=== PATIENT | female | born 1950 | race Caucasian/White ===

== ENCOUNTER 2019-04-24 09:22 | Inpatient (IN) | payer MEDICARE, OTHER ==
[2019-04-24] MEDS ORDERED: Ketorolac INJ* 30 MG/ML 1 ML VIAL IV PUSH ONE (09:51)
[2019-04-24] MEDS ORDERED: Ondansetron INJ* 2 MG/ML VIAL IV ONE (09:51)
[2019-04-24] MEDS ORDERED: NS 0.9% 1000 ML** 1,000 ML IV ONE (09:51)
--- NOTE | 2019-04-24 10:05 | ED ---
Abdominal Pain/Female - HPI Summary HPI Summary: The pt is a 68 yr old female presenting to [facility] c/o RUQ abd pain beginning 4 days [employer]. She rates her current pain severity a 9/10 due to the bad pain. No aggravating or alleviating factors noted. She also reports vomiting, dry heaves , nausea, chills and loss of appetite but denies any fever, diarrhea, dysuria, or hematuria. - History of Current Complaint Chief Complaint: EDAbdPain Stated Complaint: SEVERE ABDOMINAL/RIB PAIN PER PT Time Seen by Provider: 04/24/19 09:42 Hx Obtained From: Patient Onset/Duration: Sudden Onset, Still Present Timing: Days Severity Initially: Severe Severity Currently: Severe Pain Intensity: 9 Pain Scale Used: 0-10 Numeric Location: Discrete At: RUQ Aggravating Factor(s): Nothing Alleviating Factor(s): Nothing Associated Signs and Symptoms: Positive: Nausea, Vomiting, Other: - pos - chills , loss of appetite. Negative: Fever, Urinary Symptoms, Diarrhea Allergies/Adverse Reactions: Allergies Allergy/AdvReac Type Severity Reaction Status Date / Time iodine Allergy Rash And Verified 04/24/19 09:27 Itching iron Allergy Rash And Verified 04/24/19 09:27 Itching Lhyoswz-Dyj-Bev Reductase Allergy Rash And Verified 04/24/19 09:27 Inhibitor Itching Home Medications: Home Medications Ascorbic Acid TAB* [Vitamin C TAB*] 2,000 mg PO DAILY 04/24/19 [History Confirmed 04/24/19] Cholecalciferol TAB* [Vitamin D TAB*] 4,000 unit PO DAILY 04/24/19 [History Confirmed 04/24/19] Hydrochlorothiazide TAB* [Hydrodiuril TAB*] 25 mg PO DAILY 04/24/19 [History Confirmed 04/24/19] Levothyroxine Sodium 112 mcg PO DAILY 04/24/19 [History Confirmed 04/24/19] PMH/Surg Hx/FS Hx/Imm Hx Sensory History: Denies: Hx Legally Blind, Hx Deafness Opthamlomology History: Denies: Hx Legally Blind EENT History: Denies: Hx Deafness - Surgical History Surgical History: None Surgery Procedure, Year, and Place: none Infectious Disease History: No Infectious Disease History: Denies: Traveled Outside the [place] in Last 30 Days - Family History Known Family History: Negative: Renal Disease - Social History Alcohol Use: Rare Substance Use Type: Reports: None Smoking Status (MU): Heavy Every Day Tobacco Smoker Review of Systems Positive: Chills, Other - pos - loss of appetite. Negative: Fever Positive: Vomiting - dry heaves, Nausea. Negative: Diarrhea Negative: dysuria, hematuria All Other Systems Reviewed And Are Negative: Yes Physical Exam - Summary Physical Exam Summary: Constitutional: Well-developed, Well-nourished, Alert. (-) Distressed Skin: Warm, Dry HENT: Normocephalic; Atraumatic Eyes: Conjunctiva normal Neck: Musculoskeletal ROM normal neck. (-) JVD, (-) Stridor, (-) Tracheal deviation Cardio: Rhythm regular, rate normal, Heart sounds normal; Intact distal pulses; Radial pulses are 2+ and symmetric. (-) Murmur Pulmonary/Chest wall: Effort normal. (-) Respiratory distress, (-) Wheezes, (-) Rales Abd: Soft, Epigastric tenderness, RUQ tenderness, positive murphys sign, (-) Distension, (-) Guarding, (-) Rebound Musculoskeletal: (-) Edema Lymph: (-) Cervical adenopathy Neuro: Alert, Oriented x3 Psych: Mood and affect Normal Triage Information Reviewed: Yes Vital Signs On Initial Exam: Initial Vitals Temp Pulse Resp BP Pulse Ox 97.4 F 87 16 167/93 97 04/24/19 09:23 04/24/19 09:23 04/24/19 09:23 04/24/19 09:23 04/24/19 09:23 Vital Signs Reviewed: Yes Procedures - Sedation Patient Received Moderate/Deep Sedation with Procedure: No Diagnostics - Vital Signs Vital Signs Temp Pulse Resp BP Pulse Ox 04/24/19 09:23 97.4 F 87 16 167/93 97 - Laboratory Result Diagrams: 04/24/19 09:58 04/24/19 09:58 Lab Statement: Any lab studies that have been ordered have been reviewed, and results considered in the medical decision making process. - EKG 0958 Cardiac Rate: NL EKG Rhythm: Sinus Rhythm - 72 bpm Summary of EKG Findings: EKG at 0958 reveals NSR @ 72 bpm, 1 atrial premature complex, no ischemic changes. Abdominal Pain Fem Course/Dx - Course Course Of Treatment: Patient is here with right upper quadrant pain 4 days. Patient clinically had cholecystitis upon my examination. Patient blood performed which showed elevated LFTs, alkaline phosphatase, and mildly elevated T bili. Patient has a normal lipase. Patient SHOWED MULTIPLE GALLSTONES WITH A DILATED CBD OF 14 MM. THERE WERE GALLSTONES PRESENT IN CBD ON ULTRASOUND PER MY READ. SURGERY WAS CALLED AND RECOMMENDED ERCP WHICH WAS POSSIBLE AFTER TALKING TO DR. GIBSON. PATIENT IS ADMITTED TO MEDICINE. - Diagnoses Provider Diagnoses: Acute cholecystitis, Choledocholithiasis, RUQ pain - Provider Notifications Discussed Care Of Patient With: Maryjane Gates - Dr. Gates will admit pt to [facility] with GI follow up. Time Discussed With Above Provider: 11:15 Instructed by Provider To: Admit As Inpatient Discharge ED - Sign-Out/Discharge Documenting (check all that apply): Patient Departure - admit - Discharge Plan Condition: Stable Disposition: ADMITTED TO [facility] - Billing Disposition and Condition Condition: STABLE Disposition: Admitted to [facility] - Attestation Statements Document Initiated by Scribe: Yes Documenting Scribe: Garret Medellin Provider For Whom Amanda is Documenting (Include Credential): Etienne Walsh MD Scribe Attestation: IGarret, scribed for Etienne Walsh MD on 04/24/19 at 1428. Scribe Documentation Reviewed: Yes Provider Attestation: The documentation as recorded by the Garret gillespie accurately reflects the service I personally performed and the decisions made by me, Etienne Walsh MD Status of Scribe Document: Viewed
[2019-04-24 10:09] LABS: ABS Basophils 0.1 10^3/ul (0-0.2); ABS Eosinophils 0.1 10^3/ul (0-0.6); ABS Lymphocytes 1.5 10^3/ul (1.0-4.8); ABS Monocytes 0.8 10^3/ul (0-0.8); ABS Neutrophils 3.7 10^3/ul (1.5-7.7); Eosinophil % 1.8 %; Hematocrit 43 % (35-47); Hemoglobin 15.5 g/dL (12.0-16.0); Mean Corpuscular HGB Conc 36 g/dL (31-36); Mean Corpuscular Hemoglobin 33 pg (27-31); Mean Corpuscular Volume 92 fL (80-97); Mean Platelet Volume 8.9 fL (7.4-10.4); Nucleated Red Blood Cells % 0.1; Platelet Count 194 10^3/uL (150-450); Red Blood Count 4.71 10^6 /uL (3.70-4.87); Red Cell Distribution Width 13 % (10-15); White Blood Count 6.2 10^3/uL (3.5-10.8)
[2019-04-24 10:22] LABS: Albumin/Globulin Ratio 1.3 (1-3); BUN/Creatinine Ratio 23.6 (8-20); Calcium 9.4 mg/dL (8.6-10.3); EGFR African American 98.1 (>60); Globulin 3.1 g/dL (2-4); Potassium 3.3 mmol/L (3.5-5.0); Total Bilirubin 2.8 mg/dL (0.2-1.0); Total Protein 7.1 g/dL (6.4-8.9)
[2019-04-24 10:24] LABS: Troponin I 0.01 ng/mL (<0.03)
[2019-04-24] MEDS ORDERED: Piperacillin/Tazobac ADVAN(*) 3.375 GM in NS 0.9% 100 ML* 100 ML IVPB ONE (11:13)
[2019-04-24] MEDS ORDERED: Ketorolac INJ* 15 MG/ML 1 ML VIAL IV PUSH PRN (11:34)
[2019-04-24] MEDS ORDERED: PROCHLORPERAZINE INJ 5 MG/ML 2 ML VIAL IV PRN ×2 (11:41→12:29)
[2019-04-24] MEDS ORDERED: Zosyn per Pharmacy* NOTE FOLLOW UP SCH (12:00)
[2019-04-24] MEDS ORDERED: Famotidine IV* 10 MG/ML 2 ML (20 mg) IV ONE (12:24)
[2019-04-24] MEDS ORDERED: HYDROmorphone INJ1* 1 MG/ML SYRINGE IV PRN (12:29)
[2019-04-24] MEDS ORDERED: Naloxone* 0.4 MG/ML 1 ML VIAL IV PRN (12:29)
[2019-04-24] MEDS ORDERED: DiMENhydriNATE IV* 50 MG/ML VIAL IV PUSH PRN (12:29)
[2019-04-24] MEDS ORDERED: fentaNYL* 50 MCG/ML 2 ML VIAL (100 MCG VIAL) IV PRN (12:29)
[2019-04-24] MEDS ORDERED: Scopolamine 1.5 mg* PATCH TRANSDERM PRN (12:29)
[2019-04-24] MEDS ORDERED: Famotidine IV* 10 MG/ML 2 ML (20 mg) ONE (12:51)
[2019-04-24] MEDS: KCL 10 MEQ/50 ML IVPREMIX* 10 MEQ/50 ML BAG IV SCH ×2 (12:56→18:31)
[2019-04-24] MEDS: NS 0.9% 1000 ML** 1,000 ML IV SCH (12:56)
[2019-04-24] MEDS ORDERED: fentaNYL* 50 MCG/ML 2 ML VIAL (100 MCG VIAL) ONE (13:20)
[2019-04-24] MEDS ORDERED: KETAMINE HCL* 50 MG/ML 10 ML VIAL ONE (13:20)
[2019-04-24] MEDS ORDERED: Midazolam* 1 MG/ML 5 ML VIAL (5 MG) ONE (13:20)
[2019-04-24] MEDS ORDERED: Rocuronium* 10 MG/ML VIAL ONE (13:20)
--- NOTE | 2019-04-24 13:37 | ADMNOTE ---
Subjective Date of Service: 04/24/19 Interval History: HOSPITALIST HISTORY AND PHYSICAL PCP: Dr Novak Consulting GI: Dr Arias Consulting surgeon: Dr Resendez CC: Abdominal pain HPI: Mrs Alvarenga is a 68yo F with PMH of hypothyroidism, HTN, HLD, tobacco abuse , who presented to ED with c/o abdominal pain. She states 4 days ago she had a home made hamburger and developed epigastric pain radiating to her RUQ, 4/10 intensity, crampy in nature. This was followed by recurrent nausea and vomiting. She states she has not been able to eat anything and has been vomiting after each attempt. She took Tylenol with no improvement and she states the pain today was unbearable, reason why she came to ED. She denies fever, chills, diarrhea, chest pain, palpitations, dyspnea. Allergies: Iodine, Iron, and multiple statins - rash and itching Medication List: Vitamin C 2000 units PO daily Cholecalciferol 4000 units PO daily HCTZ 25mg PO daily Levothyroxine 112mcg PO daily Family History: Findings - Renal disease Social History: Findings - Smoker since age 17, up to 1 ppd, now 10 cigarrettes a day. Occasional alcohol - last had 2 beers on . Denies drug use. Works at a Pharmacy. SDM is her Marv Alvarenga [phone] Past Medical History: Findings - hypothyroidism, HTN, tobacco abuse, chronic back pain s/p steroid injection, vertebral compression fracture Review of Systems - Measurements Intake and Output: Intake and Output Last 24 Hours 04/22/19 04/23/19 04/24/19 04/25/19 06:59 06:59 06:59 06:59 Intake Total 1100 Balance 1100 Weight 175 lb Intake: IV Fluids 1100 Other: Date of Last Bowel 04/24/19 Movement Estimated Stool Amount Medium - Review of Systems General Comments: 14 point ROS was performed and all the pertinent positive and negative findings are in the HPI. Objective Active Medications: Dimenhydrinate (Dramamine Iv*) 12.5 mg IV PUSH ONCE PRN PRN Reason: NAUSEA/VOMITING Fentanyl Citrate (Fentanyl*) 25 mcg IV Q3M PRN PRN Reason: PAIN - MODERATE Hydromorphone HCl (Dilaudid Inj1s*) 0.2 mg IV Q5M PRN PRN Reason: PAIN - SEVERE Sodium Chloride (Ns 0.9% 1000 Ml) 1,000 mls @ 125 mls/hr IV PER RATE [facility] Last Admin: 04/24/19 12:56 Dose: 125 mls/hr Potassium Chloride (Potassium Chloride 10 Meq/50 Ml Ivpremix*) 10 meq in 50 mls @ 50 mls/hr IV Q1H [facility] Stop: 04/24/19 14:59 Last Admin: 04/24/19 12:56 Dose: 50 mls/hr Piperacillin Sod/Tazobactam (Sod 3.375 gm/ Sodium Chloride) 100 mls @ 25 mls/ hr IVPB Q8H [facility] Ketorolac Tromethamine (Toradol Inj*) 15 mg IV PUSH Q6H PRN PRN Reason: PAIN - MODERATE Naloxone HCl (Narcan*) 0.08 mg IV Q2M PRN PRN Reason: severe induced resp depression Pharmacy Consult (Zosyn Per Pharmacy*) 1 note FOLLOW UP .ZOSYN PER PHARMACY [facility] Pharmacy Profile Note (Scopolamine Patch Remove*) 1 note PATCH OFF Q72H ONE Stop: 04/27/19 12:32 Prochlorperazine Edisylate (Compazine Inj*) 5 mg IV Q6H PRN PRN Reason: NAUSEA/VOMITING Prochlorperazine Edisylate (Compazine Inj*) 5 mg IV ONCE PRN PRN Reason: NAUSEA/VOMITING Scopolamine (Transderm-Scop 1.5 Mg Patch*) 1 patch TRANSDERM Q72H PRN PRN Reason: Nausea/Vomiting Vital Signs - 8 hr 04/24/19 04/24/19 04/24/19 09:23 09:38 09:39 Temperature 97.4 F Pulse Rate 87 82 82 Respiratory 16 Rate Blood Pressure 167/93 159/114 (mmHg) O2 Sat by Pulse 97 96 Oximetry 04/24/19 04/24/19 04/24/19 10:00 10:15 11:00 Temperature Pulse Rate 77 73 77 Respiratory Rate Blood Pressure 136/82 (mmHg) O2 Sat by Pulse 95 95 94 Oximetry 04/24/19 04/24/19 04/24/19 11:09 11:39 12:00 Temperature Pulse Rate 78 76 71 Respiratory Rate Blood Pressure 139/94 141/70 (mmHg) O2 Sat by Pulse 96 95 95 Oximetry 04/24/19 04/24/19 04/24/19 12:09 12:35 12:43 Temperature 98.2 F 97.6 F Pulse Rate 73 76 77 Respiratory 16 18 Rate Blood Pressure 143/78 141/70 145/70 (mmHg) O2 Sat by Pulse 98 95 97 Oximetry 04/24/19 04/24/19 13:10 13:13 Temperature Pulse Rate Respiratory 18 18 Rate Blood Pressure (mmHg) O2 Sat by Pulse Oximetry Oxygen Devices in Use Now: None Appearance: Pleasant elderly lady lying in ED stretcher in NAD Eyes: No Scleral Icterus Ears/Nose/Mouth/Throat: Mucous Membranes Moist Neck: Trachea Midline Respiratory: Symmetrical Chest Expansion and Respiratory Effort, Clear to Auscultation Cardiovascular: RRR - Normal S1 and S2 Abdominal: - - Soft, mild epigastric tenderness, moderate RUQ tenderness, + Raymond, NG, BS+ Extremities: No Edema Neurological: Alert and Oriented x 3, NL Muscle Strength and Tone Result Diagrams: 04/24/19 09:58 04/24/19 09:58 Additional Lab and Data: Laboratory Tests 04/24/19 04/24/19 09:58 09:58 WBC 6.2 Hgb 15.5 Hct 43 Plt Count 194 Sodium 135 Potassium 3.3 L Chloride 98 L Carbon Dioxide 27 Anion Gap 10 BUN 17 Creatinine 0.72 Glucose 118 H Calcium 9.4 Total Bilirubin 2.80 H AST 89 H ALT 273 H Alkaline Phosphatase 218 H Troponin I 0.01 Total Protein 7.1 Albumin 4.0 Globulin 3.1 Lipase 37 Diagnostic Imaging: US GALL BLADDER 1. CHOLELITHIASIS WITH CHOLEDOCHOLITHIASIS AND BILIARY DILATATION. 2. THERE IS GALLBLADDER WALL THICKENING AND A POSITIVE SONOGRAPHIC RAYMOND'S SIGN CONCERNING FOR ACUTE MUCOSITIS IN THE CORRECT CLINICAL SETTING. 3. FATTY INFILTRATION OF LIVER. 4. CYSTIC LESIONS OF THE LIVER OF INDETERMINATE CLINICAL SIGNIFICANCE. RECOMMEND CONSIDERATION OF CONTRAST-ENHANCED CT OR CONTRAST-ENHANCED MRI IN THE NONACUTE SETTING. Assess/Plan/Problems-Billing Assessment: Mrs Alvarenga is a 68yo F with PMH of hypothyroidism, HTN, tobacco abuse, who presented to ED with c/o abdominal pain, N/V, found to have acute cholecystitis and choledocolithiasis. - Patient Problems (1) Choledocholithiasis with acute cholecystitis Comment: - US reveals cholelithiasis with choledocholithiasis and biliary duct dilation; also GB wall thickening. - Will continue Zosyn and symptomatic treatment. - GI consult requested for ERCP. - General surgery also consulted. (2) Hypertension Comment: - Hold HCTZ and monitor BP. (3) Hypothyroidism Comment: - Change Levothyroxine to IV. (4) DVT prophylaxis Comment: - SCDs for now as she'll require ERCP. (5) Full code status Status and Disposition: OBV. Approximately 50 minutes were spent with patient and interview, medical records review, physical examination to complete this admission, more than half of this time was spent face to face with the patient and coordination of care.
[2019-04-24] MEDS ORDERED: EPHEDrine (Pressors)* 50 MG/ML VIAL ONE (14:58)
[2019-04-24] MEDS ORDERED: Dexamethasone IV* 4 MG/ML 1 ML (4 MG) ONE (14:58)
[2019-04-24] MEDS ORDERED: Phenylephrine 40 MCG/ML SYRINGE ONE (14:58)
[2019-04-24] MEDS ORDERED: Propofol* 10 MG/ML 20 ML BTL ONE (14:58)
[2019-04-24] MEDS ORDERED: PROCHLORPERAZINE INJ 5 MG/ML 2 ML VIAL ONE (14:58)
[2019-04-24] MEDS ORDERED: Sugammadex * 200 MG/2 ML VIAL IV PUSH ONE (14:58)
[2019-04-24] MEDS ORDERED: Lidocaine 2% PF * 5 ML VIAL ONE (14:58)
[2019-04-24] MEDS ORDERED: ZOSYN 3.375 GM Q8H per EXTENDED INFUSION IVPB SCH ×2 (15:30)
--- NOTE | 2019-04-24 15:56 | CONS ---
GASTROENTEROLOGY CONSULT: DATE: 04/24/19 CONSULTING PHYSICIANS: Dr. Etienne Walsh, Dr. Ronnie Goff. REASON FOR CONSULT: Abdominal pain radiating to the right costal margin and elevated liver function tests. HISTORY: This 68-year-old woman treated for hypothyroidism and hypertension, developed abdominal pain 4 days ago. It has increased intermittently and she has been vomiting and unable to keep anything down. There have been chills and sweats. The pain is in the mid epigastrium and has radiated to the right side and little bit to the back. She says she has never had anything like this before. In the emergency room, she was afebrile, though she reported chills at home. Her pain has been relieved by a pain shot. PAST MEDICAL HISTORY: 1. Cyst removed right ovary in 1979 - she is not aware of any associated procedures. 2. Surgical thyroidectomy - on replacement. 3. Hypertension - without sequelae. MEDICATIONS: At home: Vitamin D Vitamin C, Levothyroxine 112 mcg, Hydrochlorothiazide 25. She is on no anticoagulants. SOCIAL HISTORY: She is from [place], [place] originally and met her in the [employer] and moved up here where he was from. She smokes REVIEW OF SYSTEMS: No history of TIA, CVA, seizures, syncope, palpitations, ME , hepatitis, jaundice, hernia surgery. She had upper endoscopy 15 to 20 years ago when there was complaint of some acid indigestion, but negative findings to her knowledge and she does not take anything now. She has had a couple of colonoscopies and says the findings are routine. EXAM: She is a moderately overweight, middle-aged woman, in no overt distress smelling strongly of tobacco. Blood pressure 140/70, pulse 76 and regular. She is afebrile. HEENT exam shows muddy sclerae. Mucous membranes are normal. She has no adenopathy or bruits. Her lungs are clear. Heart sounds are regular. Breast and Pelvic Exams: Deferred. The abdomen is obese, symmetric, soft, and there is some right upper quadrant tenderness, though no rigidity or guarding. Rectal: Deferred. Extremities show no edema. Neurologic shows normal mentation and movement of all 4 extremities and strength. LABS: Hemoglobin 15.5, hematocrit 43, MCV 92, white count 6.2. Sodium 135, potassium 3.3, BUN 17, creatinine 0.72. Bilirubin 2.8 compared to 0.5 in October 2011. ALT 273 compared to 17 in November 2011. TSH last in the system 0.38 in December 2012. IMPRESSION: This 68-year-old woman has 4 days of abdominal pain consistent with a biliary process and ultrasound confirms that. She has a dilated duct on ultrasound and multiple common duct stones. ERCP is appropriate and as she has had some chills at home and has now been given an antibiotic, the situation was discussed with her and her . A diagram was used to elucidate the relevant variables and all questions were answered. They are aware that cholecystectomy will follow. [id number] #: [id number] [facility]
[2019-04-24] MEDS: KCL premix 10MEQ/50 ML x 2 BAGS IV SCH ×2 (18:33→20:49)
--- NOTE | 2019-04-24 21:23 | PRO ---
DATE: 04/24/19 REFERRING PHYSICIAN : Dr. Ronnie Goff, Dr. Alec Resendez. PROCEDURE: ERCP with sphincterotomy and balloon delivery of 12 mm common bile duct stone. INDICATION: This 68-year-old woman came to the emergency room with abdominal pain and was found to have elevated LFTs. Ultrasound showed a dilated duct and stones in the duct. She was given antibiotics in the emergency room. Consultation was done and ERCP explained to the patient and with the assistance of a diagram. All questions were answered. She appeared stable. She had been seen by the hospitalist, Dr. Mancia and the emergency room physician. She appeared stable from a cardiopulmonary point of view. ENDOSCOPIST: Dr. Arias. ANESTHESIA: Dr. Mcmahon. FINDINGS: She was brought to the OR. She had been given antibiotics in the emergency room. She was positioned in the semi-prone position slightly tilted up after intubation. ERCP: Esophagus - 20% views were normal. Stomach - 50% views were normal. The antrum had no overt deformity. The pylorus appeared normal. Duodenum-normal mucosa in general. There was a moderately enlarged diverticulum and the papillae was at 4 o'clock orientation. Cannulation-achieved with the first pass of the sphincterotome with free wire technique up into the liver. The cystic duct was not entered. The wire was locked and then dye injection done. Stones were seen. There was 1 dominant stone. The sphincterotome then made a cut at 11 o'clock orientation for about 12 mm. This was retirement down into the cavity of the diverticulum. Exchange was made for a balloon, inflated to 15 and stripping down the duct it encountered the major stone and this was teased through the sphincterotomy snugly but easily with the first pass. It was an oval, oblong, brownish stone. Some other debris and small stones were delivered with subsequent passes, but they were less than 1 quarter of the size of the original stone. Dye drained easily. Procedure was terminated. No pancreatic cannulation was done. IMPRESSION: 1. Generally normal esophagus and stomach. 2. Duodenal diverticulum. 3. Dilated common bile duct. 4. After Sphincterotomy Common bile duct stone-delivered and dye drained readily at the end of the procedure. [id number] #: [id number] [facility]
[2019-04-25] MEDS: NS 0.9% 1000 ML** 1,000 ML IV SCH ×3 (00:48→17:23)
[2019-04-25] MEDS: ZOSYN 3.375 GM Q8H per EXTENDED INFUSION IVPB SCH ×6 (00:49→17:23)
[2019-04-25 05:23] LABS: ABS Lymphocytes 1.1 10^3/ul (1.0-4.8); ABS Monocytes 0.3 10^3/ul (0-0.8); ABS Neutrophils 3.2 10^3/ul (1.5-7.7); Eosinophil % 0.4 %; Hematocrit 38 % (35-47); Hemoglobin 13.3 g/dL (12.0-16.0); Lymphocyte % 23.2 %; Mean Corpuscular HGB Conc 35 g/dL (31-36); Mean Corpuscular Hemoglobin 33 pg (27-31); Mean Corpuscular Volume 93 fL (80-97); Mean Platelet Volume 8.6 fL (7.4-10.4); Nucleated Red Blood Cells % 0.1; Platelet Count 175 10^3/uL (150-450); Red Blood Count 4.07 10^6 /uL (3.70-4.87); Red Cell Distribution Width 12 % (10-15); White Blood Count 4.7 10^3/uL (3.5-10.8)
[2019-04-25] MEDS ORDERED: Levothyroxine INJ* 100 MCG/5 ML VIAL IV SCH (06:00)
[2019-04-25 06:01] LABS: Albumin 3.2 g/dL (3.2-5.2); Albumin/Globulin Ratio 1.3 (1-3); BUN/Creatinine Ratio 18.9 (8-20); Calcium 8.3 mg/dL (8.6-10.3); EGFR African American 139.7 (>60); EGFR Non-African American 115.4 (>60); Globulin 2.5 g/dL (2-4); Potassium 3.9 mmol/L (3.5-5.0); Total Bilirubin 1.1 mg/dL (0.2-1.0); Total Protein 5.7 g/dL (6.4-8.9)
--- NOTE | 2019-04-25 11:30 | PN ---
Progress Note - Progress Note Date of Service: 04/25/19 Note: Brief Surgery Note: (full consult dictated) 68 yo female w/ onset of sx (abd pain, N/V, fever/chills) on 04/21, who came to the ED 04/24 and was found by US to have cholelithiasis, poss cholecystitis, and choledocholithiasis, with elevated LFTs, including t bili of 2.8. She was taken by Dr. Arias for ERCP w/ sphincterotomy 04/24 for successful removal of a large CBD stone as well as smaller stones and debris. Today she feels "great" with only some residual back pain. She has tolerated a clear liquid tray this a.m. and has an appetite. Her LFTs are improving. By exam there is still moderate RUQ tenderness to palp w/ equivocal Raymond's sign. The remainder of the abdomen is soft and nontender. She was also seen earlier by both Drs. Resendez and Shivani. There is potential for lap cholecystectomy tomorrow, though at this point, to be determined. If not , and she remained stable medically, she could potentially be discharged to home on conservative diet with tentative plans for OR early next week.
--- NOTE | 2019-04-25 11:48 | CONS ---
CC: Dr. Ronnie Goff [facility] SURGICAL CONSULTATION NOTE: DATE OF CONSULT: 04/25/19 ATTENDING SURGEON: Dr. Alec Resendez. CHIEF COMPLAINT: Cholelithiasis with choledocholithiasis. HISTORY OF PRESENT ILLNESS: This is a 68-year-old female who reports onset of symptoms around which included initial abdominal discomfort accompanied by vomiting and then dry heaves. Pain inc reased and became more centered in the mid epigastrium with some radiation to the right and to the ba ck. Symptoms persisted through Thursday and Thursday and continued to worsen such that by Thursday jammie pack, she decided to come into the ED. She also relates associated fever and chills. She has not had a ny prior similar symptoms. She reports some constipation. No diarrhea. She reports one episode of dark appearing urine. She was admitted to the hospitalist service and has already undergone ERCP and sphincterotomy with Dr. Arias (see separate consultation and procedure notes). Her ultrasound on admission did show gallstones, mild gallbladder wall thickening, and common bile duct dilatation up t o 1.4 cm as well as a positive sonographic Raymond sign. This morning, she states that she "feels gre at." She does admit to some mild discomfort in the back, but otherwise denies significant abdominal pain, nausea, or vomiting. She had a clear liquid tray this morning, which she tolerated well. She h as since had 2 small loose bowel movements. There is a family history of gallbladder disease in her mother. PAST MEDICAL HISTORY: She was treated for hypertension and hypothyroidism (status post subtotal thyr oidectomy for goiter with subsequent radioactive iodine ablation). She is a long-term and active smo ker. PAST SURGICAL HISTORY: Previous surgeries include subtotal thyroidectomy and lumbar back surgery x2 for disk disease. She is also status post right ovarian cystectomy via low transverse incision (no p roblems related to anesthesia or surgery). CURRENT HOME MEDICATIONS: Include: 1. Levothyroxine. 2. Hydrochlorothiazide. 3. Vitamin C. 4. Vitamin D. At present, she is being treated with IV Zosyn. DRUG ALLERGIES: Include STATINS, ORAL IODINE, and ORAL IRON. FAMILY HISTORY: Gallbladder disease in her mother as noted above. The patient has a sister who has had difficulty with general anesthesia, otherwise no history of bleeding disorders or thromboembolic disease. SOCIAL HISTORY: The patient is . They also have a daughter, son-in-law, and granddaughter mara de paz with them. She is a smoker of one-half pack per day for the past 50 years. She is encouraged t o quit. She drinks between 1 and 2 drinks per day, but not daily. No reported use of recreational d rugs. REVIEW OF SYSTEMS: General: No recent constitutional symptoms or acute illnesses other than describ ed in the [facility]. Cardiovascular: No chest pain, palpitations, history of heart murmurs. She was rosaura kash for hypertension. Respiratory: Smoking history as noted. No history of shortness of breath or COPD by her history. GI: As above per HPI. No additions. : No additions to above. Endocrine: No additions to above. PHYSICAL EXAM: Height 5 feet 3 inches, weight 175 pounds, temperature 97.7, blood pressure 142/68, p ulse 71, respirations 16, room air saturation 96%. General: Well-nourished mildly obese female in no acute distress. She appears comfortable, lying in the bed. Skin: Warm and dry. No suspicious maria fernanda hes or lesions. HEENT: Pupils equal and round, reactive. EOMs intact. No conjunctival pallor or sc leral icterus. Oropharynx: Mucous membranes moist. Partial upper denture. Remaining teeth in fair to good repair. No intraoral lesions. Neck: Well-healed thyroidectomy scar. No palpable masses o r lymphadenopathy. Heart: Regular rate and rhythm. No murmur noted. Lungs: Clear to auscultation with occasional wheeze on the right. No rales. Abdomen: Mildly obese. Well-healed surgical scar in the suprapubic region. Bowel sounds are present and normoactive, soft with mild-to- moderate tend erness in the right upper quadrant with an equivocal Raymond sign. The remainder of the abdomen is so ft, nontender, without palpable masses or organomegaly. Genitalia and Rectal: Not done. Back: No spinous process or CVA tenderness. Extremities: No edema. Neurological: Grossly intact. DIAGNOSTIC STUDIES/LAB DATA: Of note, white blood cell count 4.7, hemoglobin 13.3. Electrolytes, BUN and creatinine are normal. Her total bilirubin is 1.1, down from 2.8 on admission. AST 39, down fr om 89. ALT 184, down from 273. Alkaline phosphatase 161, down from 218. Her lipase on admission wa s normal at 37. Imaging studies as noted above. IMPRESSION: Cholelithiasis likely with cholecystitis as well as choledocholithiasis, now status post ERCP with sphincterotomy and retrieval of common bile duct stones. PLAN: Case was discussed with Dr. Resendez and we would be looking for a time to do laparoscopic chol ecystectomy that could be as soon as tomorrow, 04/26/19. Otherwise if not possible, the patient could be scheduled for the near future as an outpatient same-day surgery. The patient is understanding of the plan and recommendations. EMERALD IBARRA [id number] #: [id number]
--- NOTE | 2019-04-25 13:09 | PN ---
Subjective Date of Service: 04/25/19 Interval History: HOSPITALIST PROGRESS NOTE Patient seen and examined at bedside. Care reviewed and d/w Lorenza Bagley RN. She feels improved today. Abdominal pain is pretty much resolved, but appetite has not returned yet. Denies N/V/D. Family History: Unchanged from Admission Social History: Unchanged from Admission Past Medical History: Unchanged from Admission Objective Active Medications: Sodium Chloride (Ns 0.9% 1000 Ml) 1,000 mls @ 125 mls/hr IV PER RATE [facility] Last Admin: 04/25/19 09:14 Dose: 125 mls/hr Piperacillin Sod/Tazobactam (Sod 3.375 gm/ Sodium Chloride) 100 mls @ 25 mls/ hr IVPB Q8H [facility] Last Admin: 04/25/19 09:11 Dose: 25 mls/hr Ketorolac Tromethamine (Toradol Inj*) 15 mg IV PUSH Q6H PRN PRN Reason: PAIN - MODERATE Levothyroxine Sodium (Synthroid Inj*) 56 mcg IV 0600 [facility] Last Admin: 04/25/19 05:40 Dose: 56 mcg Pharmacy Consult (Zosyn Per Pharmacy*) 1 note FOLLOW UP .ZOSYN PER PHARMACY [facility] Prochlorperazine Edisylate (Compazine Inj*) 5 mg IV Q6H PRN PRN Reason: NAUSEA/VOMITING Vital Signs - 8 hr 04/25/19 04/25/19 04/25/19 07:28 08:00 11:16 Temperature 97.7 F 97.5 F Pulse Rate 71 58 Respiratory 16 20 16 Rate Blood Pressure 142/68 124/64 (mmHg) O2 Sat by Pulse 96 97 Oximetry Oxygen Devices in Use Now: None Appearance: Pleasant elderly lady sitting up in bed in NAD Eyes: No Scleral Icterus Ears/Nose/Mouth/Throat: Mucous Membranes Moist Neck: Trachea Midline Respiratory: Symmetrical Chest Expansion and Respiratory Effort, Clear to Auscultation Cardiovascular: RRR - Normal S1 and S2 Abdominal: NL Sounds; No Tenderness; No Distention Neurological: Alert and Oriented x 3, NL Muscle Strength and Tone Result Diagrams: 04/25/19 05:04 04/25/19 05:04 Diagnostic Imaging: US GALL BLADDER 1. CHOLELITHIASIS WITH CHOLEDOCHOLITHIASIS AND BILIARY DILATATION. 2. THERE IS GALLBLADDER WALL THICKENING AND A POSITIVE SONOGRAPHIC CAMERON'S SIGN CONCERNING FOR ACUTE MUCOSITIS IN THE CORRECT CLINICAL SETTING. 3. FATTY INFILTRATION OF LIVER. 4. CYSTIC LESIONS OF THE LIVER OF INDETERMINATE CLINICAL SIGNIFICANCE. RECOMMEND CONSIDERATION OF CONTRAST-ENHANCED CT OR CONTRAST-ENHANCED MRI IN THE NONACUTE SETTING. Assess/Plan/Problems-Billing Assessment: Mrs Alvarenga is a 68yo F with PMH of hypothyroidism, HTN, tobacco abuse, who presented to ED with c/o abdominal pain, N/V, found to have acute cholecystitis and choledocolithiasis. - Patient Problems (1) Choledocholithiasis with acute cholecystitis Comment: - US revealed cholelithiasis with choledocholithiasis and biliary duct dilation; also GB wall thickening. - S/p successfull ERCP. - Continue Zosyn and symptomatic treatment. - General surgery input appreciated - tentative plan for lap fernando tomorrow. - Patient has no complaints of CP or dyspnea on exertion. EKG shows no acute ischemic changes. RCRI is 0, predicting a 0.5% risk of MACE. Patient is optimized for proposed procedure. (2) Hypertension Comment: - HCTZ on hold - continue to monitor BP. (3) Hypothyroidism Comment: - Resume PO Levothyroxine. (4) Tobacco abuse Comment: - Patient received education re: tobacco cessation. Declines nicotine supplementation at this time. (5) DVT prophylaxis Comment: - SCDs. (6) Full code status Status and Disposition: Change to inpatient.
[2019-04-25] MEDS ORDERED: Buffered Lidocaine 1% SYRIN* 1 ML/SYRINGE INTRADERM ONE (13:20)
--- NOTE | 2019-04-25 15:44 | PN ---
Progress Note - Progress Note Date of Service: 04/25/19 Note: GI fu doing well, no pain VSS nad, alert +bs, soft LFTs improving Cholelithiasis, OR tomorrow Galen MD Mitul
[2019-04-25] MEDS ORDERED: Acetaminophen TAB* 325 MG PO PRN (22:58)
[2019-04-26] MEDS: ZOSYN 3.375 GM Q8H per EXTENDED INFUSION IVPB SCH ×6 (01:17→17:12)
[2019-04-26] MEDS: NS 0.9% 1000 ML** 1,000 ML IV SCH ×2 (01:50→11:08)
[2019-04-26] MEDS: Levothyroxine TAB* 112 MCG TAB PO SCH (05:59)
[2019-04-26] MEDS ORDERED: Lactated Ringers 1000 ML Bag* 1,000 ML IV SCH (06:00)
[2019-04-26] MEDS ORDERED: Ondansetron INJ* 2 MG/ML VIAL IV ONE (06:00)
[2019-04-26] MEDS ORDERED: Dexamethasone IV* 4 MG/ML 1 ML (4 MG) IV SLOW PU ONE (06:00)
[2019-04-26 06:06] LABS: Albumin 3.1 g/dL (3.2-5.2); Calcium 7.7 mg/dL (8.6-10.3); Potassium 3.5 mmol/L (3.5-5.0)
[2019-04-26 06:12] LABS: Albumin/Globulin Ratio 1.4 (1-3); BUN/Creatinine Ratio 11.1 (8-20); EGFR African American 114.4 (>60); EGFR Non-African American 94.5 (>60); Globulin 2.2 g/dL (2-4); Total Protein 5.3 g/dL (6.4-8.9)
[2019-04-26] MEDS ORDERED: Famotidine IV* 10 MG/ML 2 ML (20 mg) IV ONE (08:00)
--- NOTE | 2019-04-26 10:00 | PN ---
Progress Note - Progress Note Date of Service: 04/26/19 Note: Patient feels tired but no other complaints. Denies abdominal pain, nausea, vomiting. Denies chest pain or dyspnea. Has been walking in the hallways. Temp Pulse Resp BP Pulse Ox 97.6 F 59 16 165/68 96 04/26/19 08:46 04/26/19 08:46 04/26/19 08:46 04/26/19 08:46 04/26/19 08:46 Intake & Output 04/25/19 04/26/19 04/26/19 22:59 06:59 14:59 Intake Total 3390 1095 Output Total 1800 1750 500 Balance 1590 -655 -500 General: No acute distress. Pleasant. Abdomen: soft, nontender, nondistended. Extremities: Warm. No pedal edema Neuro: Alert, oriented x3 Laboratory Results - last 24 hr 04/26/19 05:21 Sodium 138 Potassium 3.5 Chloride 110 Carbon Dioxide 22 Anion Gap 6 BUN 7 Creatinine 0.63 Est GFR ( Amer) 114.4 Est GFR (Non-Af Amer) 94.5 BUN/Creatinine Ratio 11.1 Glucose 83 Calcium 7.7 L Total Bilirubin 1.00 AST 27 ALT 131 H Alkaline Phosphatase 126 H Total Protein 5.3 L Albumin 3.1 L Globulin 2.2 Albumin/Globulin Ratio 1.4 A&P 68F with choledocholithiasis s/p ERCP and sphincterotomy. -OR today for laparoscopic possible open cholecystectomy this afternoon. Discussed risks of surgery including but not limited to bleeding, infection, bile duct injury, bowel injury. -Continue Zosyn -NPO. IVF -Anticipate ready for discharge to home later today or tomorrow.
[2019-04-26] MEDS ORDERED: Naloxone* 0.4 MG/ML 1 ML VIAL IV PRN (17:47)
[2019-04-26] MEDS ORDERED: HYDROmorphone INJ1* 1 MG/ML SYRINGE IV PRN (17:47)
[2019-04-26] MEDS ORDERED: fentaNYL* 50 MCG/ML 2 ML VIAL (100 MCG VIAL) IV PRN (17:47)
[2019-04-26] MEDS ORDERED: oxyCODONE TAB* 5 MG TAB PO PRN (17:47)
[2019-04-26] MEDS ORDERED: DiMENhydriNATE IV* 50 MG/ML VIAL IV PUSH PRN (17:47)
[2019-04-26] MEDS ORDERED: Dexamethasone IV* 4 MG/ML 1 ML (4 MG) ONE (17:55)
[2019-04-26] MEDS ORDERED: Ondansetron INJ* 2 MG/ML VIAL ONE (17:55)
[2019-04-26] MEDS ORDERED: Labetalol IV* 5 MG/ML 20 ML VIAL ONE (17:56)
[2019-04-26] MEDS ORDERED: Midazolam* 1 MG/ML 5 ML VIAL (5 MG) ONE (18:10)
[2019-04-26] MEDS ORDERED: Rocuronium* 10 MG/ML VIAL ONE ×2 (18:10→18:11)
[2019-04-26] MEDS ORDERED: fentaNYL* 50 MCG/ML 2 ML VIAL (100 MCG VIAL) ONE (18:10)
[2019-04-26] MEDS ORDERED: KETAMINE HCL* 50 MG/ML 10 ML VIAL ONE (18:10)
--- NOTE | 2019-04-26 19:28 | PN ---
Subjective Date of Service: 04/26/19 Interval History: patient seen today doing well, pain improved. for lap fernando today as per surgery. No acute events overnight Social History: Unchanged from Admission Past Medical History: Unchanged from Admission Objective Active Medications: Acetaminophen (Tylenol Tab*) 650 mg PO Q4H PRN PRN Reason: FEVER/HEADACHE Last Admin: 04/25/19 23:27 Dose: 650 mg Dimenhydrinate (Dramamine Iv*) 12.5 mg IV PUSH ONCE PRN PRN Reason: NAUSEA/VOMITING Fentanyl Citrate (Fentanyl*) 25 mcg IV Q3M PRN PRN Reason: PAIN - MODERATE Hydromorphone HCl (Dilaudid Inj1s*) 0.2 mg IV Q5M PRN PRN Reason: PAIN - SEVERE Sodium Chloride (Ns 0.9% 1000 Ml) 1,000 mls @ 125 mls/hr IV PER RATE [facility] Last Admin: 04/26/19 11:08 Dose: 125 mls/hr Piperacillin Sod/Tazobactam (Sod 3.375 gm/ Sodium Chloride) 100 mls @ 25 mls/ hr IVPB Q8H [facility] Last Admin: 04/26/19 17:12 Dose: 25 mls/hr Lactated Ringer's (Lactated Ringers 1000 Ml Bag*) 1,000 mls @ 125 mls/hr IV PER RATE [facility] Ketorolac Tromethamine (Toradol Inj*) 15 mg IV PUSH Q6H PRN PRN Reason: PAIN - MODERATE Levothyroxine Sodium (Synthroid Tab*) 112 mcg PO DAILY@0600 [facility] Last Admin: 04/26/19 05:59 Dose: 112 mcg Naloxone HCl (Narcan*) 0.08 mg IV Q2M PRN PRN Reason: severe induced resp depression Oxycodone HCl (Roxycodone Tab*) 5 mg PO ONCE PRN PRN Reason: PAIN - MODERATE Pharmacy Consult (Zosyn Per Pharmacy*) 1 note FOLLOW UP .ZOSYN PER PHARMACY [facility] Prochlorperazine Edisylate (Compazine Inj*) 5 mg IV Q6H PRN PRN Reason: NAUSEA/VOMITING Vital Signs - 8 hr 04/26/19 04/26/19 11:28 15:27 Temperature 98.5 F 97.9 F Pulse Rate 65 68 Respiratory 18 16 Rate Blood Pressure 158/80 162/72 (mmHg) O2 Sat by Pulse 98 98 Oximetry Oxygen Devices in Use Now: None Appearance: awake. alert no distress Eyes: No Scleral Icterus Ears/Nose/Mouth/Throat: NL Teeth, Lips, Gums, Mucous Membranes Moist Neck: NL Appearance and Movements; NL JVP, Trachea Midline Respiratory: Symmetrical Chest Expansion and Respiratory Effort, Clear to Auscultation Cardiovascular: NL Sounds; No Murmurs; No JVD, RRR Abdominal: NL Sounds; No Tenderness; No Distention Extremities: No Edema Skin: No Rash or Ulcers Neurological: Alert and Oriented x 3, NL Sensation Result Diagrams: 04/25/19 05:04 04/26/19 05:21 Additional Lab and Data: Laboratory Tests 04/24/19 04/24/19 09:58 09:58 WBC 6.2 Hgb 15.5 Hct 43 Plt Count 194 Sodium 135 Potassium 3.3 L Chloride 98 L Carbon Dioxide 27 Anion Gap 10 BUN 17 Creatinine 0.72 Glucose 118 H Calcium 9.4 Total Bilirubin 2.80 H AST 89 H ALT 273 H Alkaline Phosphatase 218 H Troponin I 0.01 Total Protein 7.1 Albumin 4.0 Globulin 3.1 Lipase 37 Diagnostic Imaging: US GALL BLADDER 1. CHOLELITHIASIS WITH CHOLEDOCHOLITHIASIS AND BILIARY DILATATION. 2. THERE IS GALLBLADDER WALL THICKENING AND A POSITIVE SONOGRAPHIC CAMERON'S SIGN CONCERNING FOR ACUTE MUCOSITIS IN THE CORRECT CLINICAL SETTING. 3. FATTY INFILTRATION OF LIVER. 4. CYSTIC LESIONS OF THE LIVER OF INDETERMINATE CLINICAL SIGNIFICANCE. RECOMMEND CONSIDERATION OF CONTRAST-ENHANCED CT OR CONTRAST-ENHANCED MRI IN THE NONACUTE SETTING. Assess/Plan/Problems-Billing Assessment: Mrs Alvarenga is a 68yo F with PMH of hypothyroidism, HTN, tobacco abuse, who presented to ED with c/o abdominal pain, N/V, found to have acute cholecystitis and choledocolithiasis. - Patient Problems (1) Choledocholithiasis with acute cholecystitis Current Visit: Yes Status: Acute Code(s): K80.42 - CALCULUS OF BILE DUCT W ACUTE CHOLECYSTITIS W/O OBSTRUCTION SNOMED Code(s): 32301599 Comment: - US revealed cholelithiasis with choledocholithiasis and biliary duct dilation; also GB wall thickening. - S/p successfull ERCP. - Continue Zosyn. - for lap fernando today (2) Hypertension Current Visit: Yes Status: Acute Code(s): I10 - ESSENTIAL (PRIMARY) HYPERTENSION SNOMED Code(s): 96209195 Comment: - HCTZ on hold - continue to monitor BP. (3) Hypothyroidism Current Visit: Yes Status: Acute Code(s): E03.9 - HYPOTHYROIDISM, UNSPECIFIED SNOMED Code(s): 88832718 Comment: - Resume PO Levothyroxine. (4) DVT prophylaxis Current Visit: Yes Status: Acute Code(s): Z29.9 - ENCOUNTER FOR PROPHYLACTIC MEASURES, UNSPECIFIED SNOMED Code(s): 748099314 Comment: - SCDs. Status and Disposition: possible discharge in am
[2019-04-26] MEDS ORDERED: Bupivacaine 0.25% SDV* 30 ML ONE (19:57)
[2019-04-26] MEDS ORDERED: HYDROmorphone INJ1* 1 MG/ML SYRINGE ONE (20:19)
[2019-04-26] MEDS ORDERED: Propofol* 10 MG/ML 20 ML BTL ONE (20:23)
[2019-04-26] MEDS ORDERED: Ketorolac INJ* 30 MG/ML 1 ML VIAL ONE (20:23)
[2019-04-26] MEDS ORDERED: Acetaminophen IV 1GM/100ML * 100 ML ONE (20:23)
[2019-04-26] MEDS ORDERED: Lidocaine 2% PF * 5 ML VIAL ONE (20:23)
[2019-04-26] MEDS ORDERED: Phenylephrine 10 MG/ML VIAL* 1 ML VIAL ONE (20:23)
--- NOTE | 2019-04-26 22:07 | BRIEFOPN ---
Brief Operative/Procedure Note - Operation Details Pre-Op Diagnosis: Choledocholithiasis Post-Op Diagnosis: Same Procedures: Laparoscopic cholecystectomy Surgeon(s)/Proceduralists: Marta Lawton MD. Corporate Account Executive: Alec Resendez MD Anesthesia: General Estimated Blood Loss: Minimal Findings: Mild inflammation of gallbladder wall Specimen(s)/Culture(s) Description: Gallbladder Complications: None
[2019-04-26] MEDS ORDERED: oxyCODONE TAB* 5 MG TAB ONE (22:12)
--- NOTE | 2019-04-27 01:00 | OP ---
CC: Dr. Ronnie Goff * DATE OF OPERATION: 04/26/19 - ROOM #339 DATE OF : 54. SURGEON: Marta Lawton M.D. DAIRY STORE MANAGER: Alec Resendez M.D. PRIMARY CARE PHYSICIAN: Dr. Ronnie Goff. ANESTHESIA: General. PRE-OP DIAGNOSIS: Choledocholithiasis. POST-OP DIAGNOSIS: Choledocholithiasis. OPERATIVE PROCEDURE: Laparoscopic cholecystectomy. ESTIMATED BLOOD LOSS: 30 mL. INDICATIONS: Екатерина Alvarenga is a 68-year-old female with a history of hypertension and hypothyroidism, who presented to the ED with abdominal pain and nausea and vomiting. She was found to have choledocholithiasis. She underwent ERCP on 04/24/19 where a sphincterotomy was performed with balloon delivery of a common bile duct stone. Cholecystectomy was then discussed with the patient. I discussed risks including but not limited to bleeding, infection , common bile duct injury or bowel injury. She agreed to proceed with surgery. FINDINGS: Mildly inflamed gallbladder wall. DESCRIPTION OF PROCEDURE: The patient was brought to the OR and placed in the supine position on the OR table. SCDs were placed. A warming blanket was also placed on the patient. Zosyn was started which she had been receiving pre- operatively. General anesthesia was administered. The abdomen was prepped and draped in the usual sterile fashion. A time-out confirming the patient's name, date of , and procedure was called. A curvilinear supraumbilical incision was made with a 15 blade scalpel. The incision was taken down to the fascia with blunt dissection. The fascia was elevated and incised transversely. The peritoneum was elevated using a Jennifer clamp. Metzenbaum scissors was used to open the peritoneum. A 12-mm trocar was placed into the abdomen. Pneumoperitoneum was achieved to 15 mmHg. The camera was inserted into the abdomen. A 5-mm trocar was placed in the epigastrium under direct visualization. Another 5-mm trocar was placed laterally in the right upper quadrant, and a third 5-mm trocar was placed medial in the right upper quadrant, both under direct visualization. The gallbladder was elevated cephalad. The peritoneum was taken off of the gallbladder wall using electrocautery and blunt dissection. The peritoneum was thickened. The peritoneum over the cystic duct and artery was taken down using electrocautery and blunt dissection. The critical view was obtained after skeletonizing the cystic duct and artery. A medium clip process camera operator was used to clip the cystic artery, and divide the artery between the clips. The cystic duct was slightly larger than the medium clips, so a large clip process camera operator was used. The epigastric 5-mm trocar was upsized to a 12-mm trocar. The cystic duct was clipped with large clips and divided with scissors between the clips. The gallbladder was then taken off the liver bed using electrocautery. The gallbladder was placed in the specimen bag and removed from the abdomen. It was then passed off the the field to send to Pathology. The right upper quadrant was suctioned. There was small amount of bleeding from the liver. There was no active bleeding at the end of the case. The clips were in good position on the artery and the duct. The 5-mm trocars were removed under direct visualization. The 12-mm epigastric trocar was removed under direct visualization. The umbilical trocar was removed. The fascia was closed with a [id number] 0 Vicryl stitch. The skin was closed with a running 4-0 Monocryl suture. The remaining trocar sites were closed with interrupted 4-0 Monocryl sutures. 0.25% Marcaine was then infiltrated into each of the trocar sites. Steri-Strips were placed over the incisions. The needle and sponge counts were correct. The patient was extubated and brought to Recovery in stable condition. [id number]/[facility] #: [id number] NOEMI
[2019-04-27] MEDS: ZOSYN 3.375 GM Q8H per EXTENDED INFUSION IVPB SCH ×4 (02:02→08:06)
[2019-04-27] MEDS: oxyCODONE TAB* 5 MG TAB PO PRN ×2 (02:02→07:59)
[2019-04-27] MEDS: Levothyroxine TAB* 112 MCG TAB PO SCH (06:02)
--- NOTE | 2019-04-27 08:12 | PN ---
Progress Note - Progress Note Date of Service: 04/27/19 Note: Patient complains of RUQ pain 08/18. Has taken oxycodone once overnight. Has been out of bed and walked to the bathroom. Denies nausea and tolerating clears. Plans to try regular diet at breakfast. Temp Pulse Resp BP Pulse Ox 97.8 F 72 18 147/71 95 04/27/19 03:29 04/27/19 03:29 04/27/19 07:59 04/27/19 03:29 04/27/19 03:29 Intake & Output 04/26/19 04/27/19 04/27/19 22:59 06:59 14:59 Intake Total 310 Output Total 900 1800 Balance -900 -1490 General: No acute distress Abdomen: soft, obese, tender to palpation in RUQ. Incisions covered with Steri Strips, no redness. Small amount of dried serosanguinous fluid at lateral right trocar site. Neuro: Alert, oriented x3 A&P: 68F with choledocholithiasis s/p ERCP and sphincterotomy 04/24 and s/p lap fernando POD 1. Doing well post op. -Advance to regular diet as tolerated. -No antibiotics needed from surgical point of view. -Tylenol and oxycodone prn -Ready for discharge from surgery standpoint. Follow up appt 05/09 at 2pm. Post op instructions and work note placed in discharge plan.
[2019-04-27 11:46] VITALS: BP 136/62
[2019-04-27] MEDS ORDERED: Scopolamine PATCH Remove* 1 NOTE MISC PATCH OFF ONE (12:31)
--- NOTE | 2019-04-27 20:58 | DS ---
CC: Dr. Ronnie Goff; Dr. Marta Lawton, Surgery.* DISCHARGE SUMMARY: DATE OF ADMISSION: 04/24/19 DATE OF DISCHARGE: 04/27/19 FINAL DISCHARGE DIAGNOSIS: 1. Acute cholecystitis. 2. Ascending cholangitis with choledocholithiasis. 3. Hypertension. 4. Hypothyroidism. 5. Chronic tobacco use. HOSPITAL COURSE: The patient presented to [facility] on 04/24/19 of severe abdominal pain located in the epigastric, radiating to the right upper quadrant. At that time, it was 4/10, crampy in nature, associated with nausea, vomiting. During the initial evaluation in the emergency room, the patient was noted to have cholelithiasis and choledocholithiasis with biliary dilation, positive Raymond sign. There was a concern for ascending cholangitis with acute cholecystitis. She was started empirically on antibiotic with Zosyn. GI consultation requested for an ERCP and General Surgery as well. The patient underwent ERCP on 04/24/[address] Merlin Arias and she had sphincterotomy and extraction of common bile duct stones. It should be noted that her bilirubin was 2.8 on presentation and came down to 1 post-procedure and her LFTs which were elevated at 273 for ALT down to 131 yesterday. She had no white count and she was afebrile. Following day on 04/26/19, she underwent cholecystectomy laparoscopically by Dr. Marta Lawton. The patient tolerated the procedure well and she was seen and evaluated this morning by Surgery. She was cleared for discharge with low fat diet. The patient was seen and evaluated by me and she was deemed stable to discharge as well. PHYSICAL EXAMINATION: Temperature 97.6, pulse 61, respiratory rate 18, satting 96%, blood pressure 136/62. In general, she is awake, alert, disoriented and pleasant. Head and Neck: Normocephalic, atraumatic. Neck is supple. Extraocular muscles are intact. Lungs: Fine expiratory wheezing. Cardiovascular: S1, S2, regular rate and rhythm. Abdomen: Positive bowel sounds. She does have small minimum andrew-incisional wound tenderness. Otherwise unremarkable. Extremities: No pedal edema. DIAGNOSTIC STUDIES: Blood work on admission; CBC 04/24/19 and 04/25/19 were unremarkable. Chemistry and liver profile was significant for transaminitis with AST 89 on admission, down to 27 on discharge. ALT 273 on admission, down to 131 on discharge. Alk phos was 218, down to 126 on discharge. Total bili was 2.8, down to 1.0 on discharge. Remaining unremarkable. Microbiology none. Ultrasound of the gallbladder dated 04/24/19 showed cholelithiasis and choledocholithiasis with biliary dilation. Gallbladder was thickened with positive sonographic Raymond sign with incidental cystic lesion of the liver. Recommend outpatient followup CT scan with IV contrast for further study. ERCP 04/24/19 which revealed common bile duct stone which was extracted after sphincterotomy. CONSULTATIONS: Dr. Arias from GI and Dr. Marta Lawton from Surgery. PROCEDURE: Laparoscopic cholecystectomy and ERCP. DISCHARGE MEDICATIONS: Resume her home medications as follows: 1. Vitamin C. 2. Vitamin D. 3. Hydrochlorothiazide 25 mg daily. 4. Levothyroxine 112 mcg daily. 5. Tylenol p.r.n. DISCHARGE INSTRUCTIONS: To remain out of work until she follows with the surgeon on 05/09/19 for further release. DISCHARGE CONDITION: Stable. DISCHARGE DISPOSITION: Home. [id number]/[facility] #: [id number] [facility]
== END 2019-04-27 13:18 | disposition home or self-care (01) | DRG 419 ==
LOC: ED 09:22 → SSU 11:30 → OBSVTOIN 13:14
PROVIDERS: ADMIT Internal Medicine; ATTEND Internal Medicine
PROC: 0FC98ZZ Extirpation of Matter from Common Bile Duct, Via Natural or Artificial Opening Endoscopic (ICD-10-PCS; 2019-04-24)
PROC: 0F798ZZ Dilation of Common Bile Duct, Via Natural or Artificial Opening Endoscopic (ICD-10-PCS; 2019-04-24)
PROC: 0FT44ZZ Resection of Gallbladder, Percutaneous Endoscopic Approach (ICD-10-PCS; principal; 2019-04-26 17:30)
DX: K80.42 Calculus of bile duct with acute cholecystitis without obstruction (principal); E03.9 Hypothyroidism, unspecified; E78.5 Hyperlipidemia, unspecified; I10 Essential (primary) hypertension; F17.210 Nicotine dependence, cigarettes, uncomplicated; R74.0 Nonspecific elevation of levels of transaminase and lactic acid dehydrogenase [LDH]; M54.9 Dorsalgia, unspecified; K57.10 Diverticulosis of small intestine without perforation or abscess without bleeding; Z79.899 Other long term (current) drug therapy; Z88.8 Allergy status to other drugs, medicaments and biological substances; Z84.1 Family history of disorders of kidney and ureter; Z83.79 Family history of other diseases of the digestive system
CPT/HCPCS: 36415; 74330; 76705; 80053; 83690; 84484; 85025; 88304; 93005; 96361; 96365; 96375; 99283; A9270-GY; C1769; J0780; J1100; J1170; J1885; J2250; J2405; J2543; J2704; J3010; J3480; J3490